=== PATIENT | male | born 1985 | race Caucasian/White ===

== ENCOUNTER 2021-06-07 00:05 | Emergency (ER) | payer OTHER ==
[~2021-06-07] VITALS: Ht 167.6 cm; Wt 61.2 kg
[2021-06-07 00:52] LABS: HEMATOCRIT 36.8 % (42.0-52.0); HEMOGLOBIN 12.2 gm/dL (14.0-18.0); MCH 36.4 pg (26.0-34.0); MCHC 33.1 g/dL (28.0-37.0); MCV 109.9 fL (80.0-100.0); PLATELET COUNT 152 thou/uL (150-400); RBC 3.35 mil/uL (4.50-6.00); RDW 14.6 % (10.5-14.5); WBC 4.9 thou/uL (4.0-11.0)
[2021-06-07 00:57] LABS: CREATININE 0.9 mg/dL (0.7-1.3); MAGNESIUM 1.4 mg/dL (1.8-2.4)
[2021-06-07 01:05] LABS: ALBUMIN 3.9 g/dL (3.4-5.0); DIRECT BILIRUBIN 0.6 mg/dL (<0.1-0.2); TOTAL PROTEIN 7.3 g/dL (6.4-8.2)
[2021-06-07 01:35] LABS: ABSOLUTE NEUTROPHILS 3.5 thou/uL (1.4-8.2); MACROCYTES 2+
[2021-06-07 01:36] LABS: LARGE PLATELETS RARE
[2021-06-07 02:29] VITALS: BP 117/77
== END 2021-06-07 02:30 | disposition home or self-care (01) ==
LOC: ER 00:05
PROVIDERS: Student in an Organized Health Care Education/Training Program
DX: E87.6 Hypokalemia (principal); E83.42 Hypomagnesemia; F10.239 Alcohol dependence with withdrawal, unspecified; Z98.890 Other specified postprocedural states

== ENCOUNTER 2021-06-29 15:26 | Emergency (ER) | payer OTHER ==
[~2021-06-29] VITALS: Ht 167.6 cm; Wt 61.2 kg
[2021-06-29 16:02] LABS: ABSOLUTE NEUTROPHILS 6.7 thou/uL (1.4-8.2); BASOPHILS 0.3 % (0.0-2.0); EOSINOPHILS 0.8 % (0.0-3.0); HEMATOCRIT 40.2 % (42.0-52.0); HEMOGLOBIN 13.6 gm/dL (14.0-18.0); LYMPHOCYTES 5.8 % (24.0-44.0); MCH 35.1 pg (26.0-34.0); MCHC 33.8 g/dL (28.0-37.0); MONOCYTES 5.5 % (1.0-8.0); PLATELET COUNT 78 thou/uL (150-400); POLYS 87.6 % (36.0-66.0); RBC 3.87 mil/uL (4.50-6.00); RDW 13.6 % (10.5-14.5); WBC 7.6 thou/uL (4.0-11.0)
[2021-06-29 16:07] LABS: CALCIUM 8.1 mg/dL (8.5-10.1); CREATININE 0.6 mg/dL (0.7-1.3); POTASSIUM 3.1 mmol/L (3.5-5.1)
[2021-06-29 16:14] LABS: TOTAL BILIRUBIN 1.9 mg/dL (0.2-1.0); TOTAL PROTEIN 7.7 g/dL (6.4-8.2)
[2021-06-29 16:18] LABS: URINE BILIRUBIN 1+ (Negative); URINE BLOOD NEGATIVE (Negative); URINE CLARITY CLEAR; URINE COLOR YELLOW; URINE GLUCOSE-RANDOM* NEGATIVE (Negative); URINE KETONES 1+ (Negative); URINE LEUKOCYTES-REFLEX NEGATIVE (Negative); URINE NITRITE-REFLEX NEGATIVE (Negative); URINE PROTEIN (DIPSTICK) 1+ (Negative)
[2021-06-29 16:20] LABS: ICTOTEST (BILI CONFIRMATORY) Positive (Negative)
[2021-06-29 16:24] LABS: SALICYLATE < 2.8 mg/dL (2.8-20.0)
[2021-06-29 16:25] LABS: BACTERIA-REFLEX 1-9 Few /HPF (None Seen); CASTS None Seen /LPF (None Seen); CRYSTALS None Seen /LPF (None Seen); SQUAMOUS 4-10 Moderate /LPF (0-3); URINE RBC 1-2 Rare /HPF (NONE SEEN); URINE WBC-REFLEX 0-5 Rare /HPF (0-5)
[2021-06-29 18:48] VITALS: BP 119/75
--- NOTE | 2021-06-30 07:44 | EKG ---
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
== END 2021-06-29 18:55 | disposition home or self-care (01) ==
LOC: ER 15:26
PROVIDERS: Nurse Practitioner; Student in an Organized Health Care Education/Training Program
DX: F10.20 Alcohol dependence, uncomplicated (principal); Y90.9 Presence of alcohol in blood, level not specified

== ENCOUNTER 2021-07-06 13:26 | Inpatient (IN) | payer OTHER ==
[2021-07-06] VITALS (7 sets, daily range): BP systolic 97–164; BP diastolic 64–119
[~2021-07-06] VITALS: Ht 167.6 cm; Wt 62.0 kg
[2021-07-06 13:56] LABS: ABSOLUTE NEUTROPHILS 5.9 thou/uL (1.4-8.2); BASOPHILS 0.7 % (0.0-2.0); EOSINOPHILS 1.1 % (0.0-3.0); HEMATOCRIT 37.4 % (42.0-52.0); HEMOGLOBIN 12.6 gm/dL (14.0-18.0); LYMPHOCYTES 11.7 % (24.0-44.0); MCH 35.5 pg (26.0-34.0); MCHC 33.7 g/dL (28.0-37.0); MCV 105.5 fL (80.0-100.0); MONOCYTES 21.3 % (1.0-8.0); PLATELET COUNT 330 thou/uL (150-400); POLYS 65.2 % (36.0-66.0); RBC 3.54 mil/uL (4.50-6.00); RDW 13.8 % (10.5-14.5)
[2021-07-06 14:09] LABS: CALCIUM 9.5 mg/dL (8.5-10.1); CREATININE 0.5 mg/dL (0.7-1.3); POTASSIUM 4.1 mmol/L (3.5-5.1)
[2021-07-06 14:14] LABS: ALBUMIN 3.9 g/dL (3.4-5.0); TOTAL BILIRUBIN 0.2 mg/dL (0.2-1.0); TOTAL PROTEIN 7.1 g/dL (6.4-8.2)
[2021-07-06 14:31] LABS: URINE BILIRUBIN NEGATIVE (Negative); URINE BLOOD NEGATIVE (Negative); URINE CLARITY CLEAR; URINE COLOR YELLOW; URINE GLUCOSE-RANDOM* NEGATIVE (Negative); URINE KETONES NEGATIVE (Negative); URINE LEUKOCYTES-REFLEX NEGATIVE (Negative); URINE NITRITE-REFLEX NEGATIVE (Negative); URINE PROTEIN (DIPSTICK) NEGATIVE (Negative); URINE UROBILINOGEN 0.2 E.U./dl (0.2-1.0)
--- NOTE | 2021-07-06 15:28 | NUR ---
PT C/O ABD PAIN, RATING 10/10, PTS MOM ADVISED THIS RN PT IS NOW VOMITING. 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
[2021-07-06] MEDS ORDERED: TOPIRAMATE50 MG PO (17:02)
[2021-07-06] MEDS ORDERED: FOLIC ACID1 MG PO (17:02)
--- NOTE | 2021-07-06 22:05 | NUR ---
ADMISSION COMPLETED. PT IS COOPERATIVE. C/O GENERALISED ABDOMINAL PAIN AND MORPHINE GIVEN WITH RELIEF.AFEBRILE. DENIES ANY N/V. USING URINAL. ORIENTED T STTAFF AND USE OF CALL LIGHT.WILL CONTINUE WITH POC TILL EOS.
[2021-07-07] MEDS ORDERED: HYDROXYZINE HCL50 MG PO (02:21)
[2021-07-07] MEDS ORDERED: VITAMIN B-6100 MG PO (02:22)
[2021-07-07 03:19] LABS: HEMATOCRIT 37.5 % (42.0-52.0); HEMOGLOBIN 12.7 gm/dL (14.0-18.0); MCHC 33.9 g/dL (28.0-37.0); PLATELET COUNT 336 thou/uL (150-400); RBC 3.54 mil/uL (4.50-6.00); RDW 13.7 % (10.5-14.5); WBC 10.9 thou/uL (4.0-11.0)
[2021-07-07 04:11] LABS: ALBUMIN 3.4 g/dL (3.4-5.0); CALCIUM 8.3 mg/dL (8.5-10.1); CREATININE 0.4 mg/dL (0.7-1.3); MAGNESIUM 1.9 mg/dL (1.8-2.4); POTASSIUM 3.7 mmol/L (3.5-5.1); TOTAL BILIRUBIN 0.2 mg/dL (0.2-1.0); TOTAL PROTEIN 6.4 g/dL (6.4-8.2)
[2021-07-07 08:00] VITALS: BP 119/83
--- NOTE | 2021-07-07 10:44 | NUR ---
A/O X 4. ROOM AIR. AD ANNMARIE. RIGHT AC WITH NS INFUSING @ 80MLS/HR. INCREASED TO 100 MLS/HR. RIGHT ARM NICOTINE PATCH APPILED. NO NAUSEA NOTED. ABD PAIN 5/10. MORPHINE PRN WILL BE GIVEN. NPO.
--- NOTE | 2021-07-07 12:52 | NUR ---
Met with patient who admits with pancreatitis. Patient reports no health insurance. 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 Patient reports hx of seizure. he has sought ETOH treatment in the past. He cannot recall name but was sober living enviroment for a month. Patient has hx of soberiety reports he just goes back to drinking. He does not want to pursue sober living at this time. he concerned he needs to return to work. He reports he is living with parents at this time. They are supportive of his sobriety. Patient reports plan to dc home post hospital stay. Gave [facility] inforamtion and health resouces guide.
[2021-07-07 13:11] VITALS: BP 119/83
[2021-07-07 15:53] VITALS: BP 119/82
[2021-07-07 15:54] LABS: ABSOLUTE NEUTROPHILS 6.3 thou/uL (1.4-8.2)
[2021-07-07 19:59] VITALS: BP 108/70
[2021-07-08 02:29] LABS: INR 1.04; PROTIME 11.3 Seconds (10.5-12.1)
--- NOTE | 2021-07-08 03:22 | NUR ---
NO ACUTE EVENTS THIS SHIFT. PT VERY INTERESTED IN THE PROCESS OF SMOKING CESSATION AND ALTERANTIVES. EDUCATION PROVIDED TO BEST OF THIS RNs ABILITY. PT REPORTS PAIN IN LESS INTENSE THAN PREVIOUSLY. CLEAR LIQUID DIET TOLERATED WELL. UAL
[2021-07-08 08:04] VITALS: BP 105/70
--- NOTE | 2021-07-08 10:25 | NUR ---
Assumed care of pt at 0700. Pt a&ox4. Pain controlled with prn pain medications. Pt requests PO pain medication instead of IV. Provider notified. Awaiting new orders. IVF infusing. Call light within reach. Will continue to monitor.
[2021-07-08 17:59] VITALS: BP 136/67
[2021-07-08 21:00] VITALS: BP 104/59
--- NOTE | 2021-07-09 06:13 | NUR ---
NO ACUTE EVENTS THIS SHIFT. PT TOLERATING DIET VERY WELL. VSS. FLUIDS INFUSING PER ORDERS
[2021-07-09 07:19] VITALS: BP 114/72
--- NOTE | 2021-07-09 09:53 | NUR ---
Assumed care of pt at 0700. Pt a&ox4. Pain controlled this am. Tolerates diet well. Up ad [place]. RA. IVF infusing. Call light within reach. Will continue to monitor.
[2021-07-09] MEDS ORDERED: PROTONIX40 M2 PO (11:52)
[2021-07-09 12:00] VITALS: BP 119/83
== END 2021-07-09 15:32 | disposition home or self-care (01) | DRG 439 ==
LOC: ER 13:26 → 4S 16:39 → EROBS 16:39 → 4S 17:57
PROVIDERS: Emergency Medicine; Nurse Practitioner; ADMIT Hospitalist; ATTEND Hospitalist
DX: K85.90 Acute pancreatitis without necrosis or infection, unspecified (principal); G40.509 Epileptic seizures related to external causes, not intractable, without status epilepticus; F10.20 Alcohol dependence, uncomplicated; F17.200 Nicotine dependence, unspecified, uncomplicated; Z20.822 Contact with and (suspected) exposure to COVID-19; F32.A Depression, unspecified; R74.01 Elevation of levels of liver transaminase levels; Z71.41 Alcohol abuse counseling and surveillance of alcoholic
CPT/HCPCS: 10195